=== PATIENT | female | born 1995 | race African-American/Black ===

== ENCOUNTER 2018-06-05 13:22 | Emergency (ER) | payer MEDICAID, SELFPAY | END 2018-06-05 15:15 | disposition home or self-care (01) | LOC: MADERS 13:22 | DX: R11.2 Nausea with vomiting, unspecified (principal) | CPT/HCPCS: 87804; 99284 ==

== ENCOUNTER 2018-08-31 17:31 | Emergency (ER) | payer SELFPAY ==
--- NOTE | 2018-08-31 18:07 | RAD ---
4 views left wrist history: Trauma and pain. AP, lateral and both oblique views left wrist obtained. Images demonstrate no evidence of acute left wrist fractures, subluxations or bony lesions. IMPRESSION: normal 4 views left wrist. There is been significant trauma and there is concern for an occult fracture repeat radiograph in 7-1 0 days may be of use.
== END 2018-08-31 18:25 | disposition home or self-care (01) ==
LOC: MADERS 17:31
DX: S60.812A Abrasion of left wrist, initial encounter (principal); S60.512A Abrasion of left hand, initial encounter; W05.0XXA Fall from non-moving wheelchair, initial encounter